=== PATIENT | female | born 1955 | race American Indian/Alaskan Native ===

== ENCOUNTER 2016-12-17 19:01 | Emergency (ER) | payer BC ==
[2016-12-17 20:14] VITALS: BP 112/77
[2016-12-17 20:49] LABS: Hemoglobin 11.9 gm/dl (10.1-14.3); Mean Corpuscular HGB Conc 33 % (30-34); Mean Corpuscular Volume 77 fl (79-97); Platelet Count 311 K/mm3 (140-440); Red Blood Count 4.67 M/mm3 (3.65-5.03); Red Cell Distribution Width 17.6 % (13.2-15.2); White Blood Count 7.9 K/mm3 (4.5-11.0)
[2016-12-17 21:00] LABS: Mean Corpuscular Hemoglobin 25 pg (28-32)
[2016-12-17 21:06] LABS: Alanine Aminotransferase 14 units/L (7-56); Albumin 4.3 g/dL (3.9-5); Albumin/Globulin Ratio 1.4 %; Alkaline Phosphatase 83 units/L (35-129); Blood Urea Nitrogen 17 mg/dL (7-17); Carbon Dioxide 27 mmol/L (22-30); Glucose 102 mg/dL (65-100); Lipase 15 units/L (13-60); Total Protein 7.4 g/dL (6.3-8.2)
[2016-12-17 21:07] LABS: Anion Gap 18 mmol/L; Chloride 98.2 mmol/L (98-107); Potassium 4.2 mmol/L (3.6-5.0); Sodium 139 mmol/L (137-145)
[2016-12-17 21:55] LABS: Anisocytosis RARE; Basophils % (Manual) 0 % (0.0-1.8); Blastocytes % (Manual) 0 %; Diff Status Complete; Smudge Cells Few
[2016-12-17] MEDS ORDERED: MOTRIN PO ONE ×2 (23:04→23:05)
[2016-12-18 02:20] LABS: Bilirubin,Urine NEG (Negative); Blood,Urine SM (Negative); Ketones,Urine NEG (Negative); Leukocyte Esterase,Urine NEG (Negative); Mucus,Urine FEW /HPF; Nitrite,Urine NEG (Negative); Protein,Urine <15 mg/dL mg/dL (Negative); Urobilinogen,Urine < 2.0 mg/dL (<2.0)
== END 2016-12-17 23:20 | disposition left against medical advice (07) ==
LOC: ED 19:01
DX: R10.9 Unspecified abdominal pain (principal); Z53.21 Procedure and treatment not carried out due to patient leaving prior to being seen by health care provider
CPT/HCPCS: 36415; 80053; 81001; 83690; 85007; 85025

== ENCOUNTER 2020-02-02 09:49 | Outpatient (CLI) | payer MEDICARE, OTHER ==
--- NOTE | 2020-02-02 10:50 | Mammography Report ---
DIGITAL SCREENING MAMMOGRAM WITH CAD, 02/02/2020 CLINICAL INFORMATION / INDICATION: Routine screening mammography TECHNIQUE: Digital bilateral 2D mammography was obtained in the craniocaudal and mediolateral obliqu e projections. This examination was interpreted with the benefit of Computer-Aided Detection analysis . COMPARISON: Prior mammogram 03/22/2015 and 03/02/2018 FINDINGS: Breast Density: The breasts are almost entirely fatty. No dominant mass, suspicious calcifications, or architectural distortion in either breast. There is stable benign post reduction change seen in both breasts, biopsy clips in both breasts, and stable benign-appearing calcifications in the left breast. IMPRESSION: No mammographic evidence of malignancy. Follow up recommendation: Routine yearly BI-RADS Category 2: Benign. A "normal" or negative report should not discourage follow up or biopsy of a clinically significant f inding. A written summary of these findings will be mailed to the patient. The patient will be entered into a mammography reporting system which will generate a reminder letter for the patient's next appointmen t at the appropriate interval. The [employer] recommends yearly mammograms starting at age 40 and continuing as l elke as a woman is in good health. Breast MRI is recommended for women with an approximate 20-25% or greater lifetime risk of breast cancer, including women with a strong family history of breast or ova yamel cancer or who have been treated for Hodgkin's disease. Signer Name: Breana Martin MD Signed: 02/02/2020 10:45 AM Workstation Name: [id number]
== END 2020-02-02 09:50 | disposition home or self-care (01) ==
LOC: SPVWC 09:49
PROVIDERS: ATTEND Surgery
DX: Z12.31 Encounter for screening mammogram for malignant neoplasm of breast (principal)
CPT/HCPCS: 77067

== ENCOUNTER 2020-06-26 08:05 | Outpatient (CLI) | payer MEDICARE ==
--- NOTE | 2020-06-26 15:14 | Magnetic Resonance Report ---
Bilateral breast MRI with and without contrast. History: Family history of breast cancer, history of bilateral breast reduction Procedure: Axial T1 and T2-weighted fat-sat images were obtained precontrast. 18 cc cc Clariscan was injected intravenously and serial axial T1-weighted images with fat saturation were obtained postcon trast. 3-D MIP projections, Kinetic analysis and subtraction imaging was utilized to evaluate. A dedi cated 8 channel breast coil was utilized for image acquisition. Comparison: Bilateral mammogram 02/02/2020 Findings: Background level of enhancement is minimal. No suspicious axillary or clavicular nodes are identified. No abnormal bone marrow signal is seen. No significant chest wall enhancement is noted. Right breast: No suspicious lesions are seen. Left breast: Left scar is again seen centrally. No suspicious lesions are seen. Impression: No suspicious lesions are seen BIRADS: 2: Benign Signer Name: Ever Bar MD Signed: 06/26/2020 3:10 PM Workstation Name: [id number]
== END 2020-06-26 08:06 | disposition home or self-care (01) ==
LOC: SPVIMAG 08:05
PROVIDERS: ATTEND Surgery
DX: N60.11 Diffuse cystic mastopathy of right breast (principal); N60.12 Diffuse cystic mastopathy of left breast; Z80.3 Family history of malignant neoplasm of breast
CPT/HCPCS: A9575; C8908; 77049

== ENCOUNTER 2020-06-27 08:00 | Outpatient (CLI) | payer MEDICARE ==
--- NOTE | 2020-06-27 10:31 | Mammography Report ---
LEFT DIGITAL DIAGNOSTIC MAMMOGRAM WITH CAD , 06/27/2020 RIGHT LIMITED BREAST ULTRASOUND CLINICAL INFORMATION / INDICATION: The patient reports left breast pain, fullness and burning sensati on for one month. She also reports a lump in the right axilla. She has a strong family history of arleen ast cancer. TECHNIQUE: Digital left mammographic imaging was performed. Limited ultrasound was performed. This ex amination was interpreted with the benefit of Computer-Aided Detection (CAD) analysis. COMPARISON: Screening mammogram, 02/02/2020. Diagnostic mammogram, 03/02/2018 FINDINGS: Breast Density: The breasts are almost entirely fatty. MAMMOGRAPHIC FINDINGS: No dominant mass, suspicious calcifications, or architectural distortion in th e left breast. Biopsy clip and few coarse calcifications are again noted and appear unchanged. ULTRASOUND FINDINGS: Targeted ultrasound evaluation was performed of the area of interest. Sonograp hic evaluation of the right axilla in the patient's area of palpable concern demonstrates a single ci rcumscribed right axillary lymph node measuring 1.1 x 0.4 cm. This lymph node demonstrates a normal m orphology with a thin cortex and preserved fatty hilum. This corresponds to the patient's area of pal pable concern. No abnormal lymph nodes are visualized. IMPRESSION: 1. No mammographic abnormality of the left breast to account for the patient's generalized pain and b urning sensation. 2. The patient's area of palpable concern in the right axilla corresponds to a normal-appearing right axillary lymph node. Therefore, clinical correlation is recommended. Follow up recommendation: Clinical exam BI-RADS Category 2: Benign. A "normal" or negative report should not discourage follow up or biopsy of a clinically significant f inding. A written summary of these findings will be mailed to the patient. The patient will be entered into a mammography reporting system which will generate a reminder letter for the patient's next appointmen t at the appropriate interval. According to the [employer], yearly mammograms are recommended starting at age 40 and continuing as long as a woman is in good health. Breast MRI is recommended for women with an juan roximately 20-25% or greater lifetime risk of breast cancer, including women with a strong family his tory of breast or ovarian cancer and women who have been treated for Hodgkin's disease. Signer Name: Kalie Almaraz MD Signed: 06/27/2020 10:26 AM Workstation Name: [id number]
== END 2020-06-27 08:01 | disposition home or self-care (01) ==
LOC: SPVWC 08:00
PROVIDERS: ATTEND Surgery
DX: N60.11 Diffuse cystic mastopathy of right breast (principal); N60.12 Diffuse cystic mastopathy of left breast; Z80.3 Family history of malignant neoplasm of breast